=== PATIENT | male | born 1965 | race Caucasian/White ===

== ENCOUNTER 2017-09-25 10:26 | Emergency (ER) | payer OTHER ==
[~2017-09-25] VITALS: Ht 177.8 cm; Wt 86.2 kg
[2017-09-25 12:31] VITALS: BP 158/101
[2017-09-26] MEDS ORDERED: ATENOLOL50 MG PO (12:27)
[2017-09-26] MEDS ORDERED: ATORVASTATIN CA20 M1 PO (12:28)
[2017-09-26] MEDS ORDERED: HYDROCHLOROTHIA25 MG PO (12:29)
[2017-09-26] MEDS ORDERED: ASPIR 8181 MG PO (12:30)
[2017-09-26] MEDS ORDERED: GOOD SENSE ASPI81 M3 PO (12:33)
[2017-09-26] MEDS ORDERED: NEO-SYNEPHRINE15 M2 NS (16:54)
== END 2017-09-25 12:31 | disposition home or self-care (01) ==
LOC: ED 10:26
DX: R04.0 Epistaxis (principal); I10 Essential (primary) hypertension; E78.00 Pure hypercholesterolemia, unspecified
CPT/HCPCS: J3490

== ENCOUNTER 2017-09-26 03:45 | Inpatient (IN) | payer OTHER ==
[~2017-09-26] VITALS: Ht 175.3 cm; Wt 89.5 kg
[2017-09-26 05:31] LABS: CALCIUM 8.4 mg/dL (8.5-10.1); CARBON DIOXIDE 23.2 mmol/L (21-32); CHLORIDE SERUM 106 mmol/L (98-107); CREATININE SERUM 0.9 mg/dL (0.7-1.3); GFR1 > 60 mL/min; GLUCOSE SERUM 129 mg/dL (74-106); POTASSIUM SERUM 3.7 mmol/L (3.5-5.1); SODIUM SERUM 141 mmol/L (136-145)
[2017-09-26 05:35] LABS: BASOPHIL % 0.2 % (0-2); PLATELET COUNT 284 x10^3mcL (130-400); RED CELL DISTRIBUTION WIDTH 12.8 % (11.5-14.5)
[2017-09-26 05:36] LABS: ALKALINE PHOSPHATASE 89 U/L (46-116); ALT/SGPT 29 U/L (16-63); AST/SGOT 18 U/L (15-37); BILIRUBIN TOTAL 0.96 mg/dL (0.20-1.00)
[2017-09-26 09:56] LABS: MAGNESIUM 1.9 mg/dL (1.8-2.4); PHOSPHOROUS 2.7 mg/dL (2.5-4.9)
[2017-09-26 09:58] VITALS: BP 147/93
[2017-09-26 09:58] LABS: CHOLESTEROL/HDL RATIO 3.2
[2017-09-26 10:02] LABS: T3 TOTAL 1.17 ng/mL
[2017-09-26 10:03] LABS: FREE T4 1.21 ng/dL (0.76-1.46); FREE THYROXINE INDEX 3.1 ug/dL (1.4-4.5); T4(THYROXINE) 8.6 ug/dL (4.7-13.3)
[2017-09-26] MEDS ORDERED: ATENOLOL50 MG PO (12:27)
[2017-09-26] MEDS ORDERED: ATORVASTATIN CA20 M1 PO (12:28)
[2017-09-26] MEDS ORDERED: HYDROCHLOROTHIA25 MG PO (12:29)
[2017-09-26] MEDS ORDERED: ASPIR 8181 MG PO (12:30)
[2017-09-26] MEDS ORDERED: GOOD SENSE ASPI81 M3 PO (12:33)
[2017-09-26 13:06] VITALS: BP 141/83
[2017-09-26 13:11] VITALS: BP 169/93
[2017-09-26] MEDS ORDERED: NEO-SYNEPHRINE15 M2 NS (16:54)
== END 2017-09-26 14:15 | disposition home or self-care (01) | DRG 115 ==
LOC: ED 03:45 → DU 05:55 → MU 13:49
PROVIDERS: Emergency Medicine; Family Medicine
PROC: 2Y41X5Z Packing of Nasal Region using Packing Material (ICD-10-PCS; principal; 2017-09-26)
DX: R04.0 Epistaxis (principal); N17.0 Acute kidney failure with tubular necrosis; I10 Essential (primary) hypertension; R00.1 Bradycardia, unspecified; E78.5 Hyperlipidemia, unspecified; D72.829 Elevated white blood cell count, unspecified
CPT/HCPCS: 83880; 84439; J2550; J7030; Q0092

== ENCOUNTER 2018-10-31 16:18 | Emergency (ER) | payer OTHER ==
[~2018-10-31] VITALS: Ht 170.2 cm; Wt 76.2 kg
[~2018-10-31 16:18] MED LIST: ASPIR 8181 MG PO; ATENOLOL50 MG PO; ATORVASTATIN CA20 M1 PO; GOOD SENSE ASPI81 M3 PO; HYDROCHLOROTHIA25 MG PO; NEO-SYNEPHRINE15 M2 NS
[2018-10-31 16:19] VITALS: Ht 170.2 cm; Wt 76.2 kg
[2018-10-31 18:56] VITALS: BP 130/89
== END 2018-10-31 18:56 | disposition home or self-care (01) ==
LOC: ED 16:18
DX: S50.01XA Contusion of right elbow, initial encounter (principal); I10 Essential (primary) hypertension; E78.00 Pure hypercholesterolemia, unspecified; W18.30XA Fall on same level, unspecified, initial encounter; Y93.89 Activity, other specified; Y92.89 Other specified places as the place of occurrence of the external cause; Y99.8 Other external cause status

== ENCOUNTER 2019-05-12 18:54 | Emergency (ER) | payer OTHER ==
[~2019-05-12] VITALS: Ht 172.7 cm; Wt 79.4 kg
[2019-05-12 19:24] VITALS: BP 134/95; Ht 172.7 cm; Wt 79.4 kg
== END 2019-05-12 21:23 | disposition home or self-care (01) ==
LOC: ED 18:54
DX: S66.912A Strain of unspecified muscle, fascia and tendon at wrist and hand level, left hand, initial encounter (principal); S63.502A Unspecified sprain of left wrist, initial encounter; I10 Essential (primary) hypertension; E78.00 Pure hypercholesterolemia, unspecified; W01.0XXA Fall on same level from slipping, tripping and stumbling without subsequent striking against object, initial encounter; Y93.89 Activity, other specified; Y92.89 Other specified places as the place of occurrence of the external cause; Y99.8 Other external cause status
CPT/HCPCS: A4570; Q0162

== ENCOUNTER 2020-06-19 15:48 | Emergency (ER) | payer OTHER ==
[~2020-06-19] VITALS: Ht 175.3 cm; Wt 83.9 kg
[2020-06-19 16:14] VITALS: Ht 175.3 cm; Wt 83.9 kg
[2020-06-19 19:10] VITALS: BP 127/92
== END 2020-06-19 18:52 | disposition home or self-care (01) ==
LOC: ED 15:48
DX: S66.811A Strain of other specified muscles, fascia and tendons at wrist and hand level, right hand, initial encounter (principal); I10 Essential (primary) hypertension; E78.00 Pure hypercholesterolemia, unspecified; W19.XXXA Unspecified fall, initial encounter; Y93.89 Activity, other specified; Y92.89 Other specified places as the place of occurrence of the external cause; Y99.8 Other external cause status